=== PATIENT | female | born 1990 | race Caucasian/White ===

== ENCOUNTER 2018-09-27 15:24 | Outpatient (CLI) | payer OTHER ==
[~2018-09-27] VITALS: Ht 157.5 cm; Wt 83.1 kg
[~2018-09-27 15:24] MED LIST: NONE PER PT
[2018-09-27 15:37] VITALS: BP 127/78
[2018-09-27] MEDS ORDERED: PREN1TAB60 PO (17:04)
== END 2018-09-27 17:31 | disposition home or self-care (01) ==
LOC: LDOP 15:24
PROVIDERS: ATTEND Obstetrics & Gynecology
DX: O36.8130 Decreased fetal movements, third trimester, not applicable or unspecified (principal); Z3A.36 36 weeks gestation of pregnancy
CPT/HCPCS: 59025; 76819; 99201; G0463

== ENCOUNTER 2018-10-19 17:57 | Outpatient (CLI) | payer OTHER ==
[~2018-10-19] VITALS: Ht 157.5 cm; Wt 86.4 kg
[~2018-10-19 17:57] MED LIST changes: +PREN1TAB60 PO
[2018-10-19 18:26] VITALS: BP 127/83
== END 2018-10-19 21:00 | disposition home or self-care (01) ==
LOC: LDOP 17:57 → EDSTATUS 10-22 17:57
PROVIDERS: ATTEND Obstetrics & Gynecology
DX: O42.92 Full-term premature rupture of membranes, unspecified as to length of time between rupture and onset of labor (principal); Z88.8 Allergy status to other drugs, medicaments and biological substances; Z3A.39 39 weeks gestation of pregnancy
CPT/HCPCS: 59025; 89060; 99211; G0463; Q0114

== ENCOUNTER 2018-10-26 06:05 | Inpatient (IN) | payer OTHER ==
[~2018-10-26] VITALS: Ht 157.5 cm; Wt 86.3 kg
[2018-10-26] MEDS ORDERED: OXYTOCIN 30U/ 0.9% NaCL 500ML 500 ML IV ONE (06:07)
[2018-10-26] MEDS ORDERED: OXYTOCIN 30U/ 0.9% NaCL 500ML 500 ML IV PRN (06:07)
[2018-10-26] MEDS ORDERED: AMPICILLIN 2 GM in SODIUM CHLORIDE 0.9% 100 ML IVPB STA (06:07)
[2018-10-26 06:20] VITALS: BP 139/73
[2018-10-26] MEDS ORDERED: FENTANYL PF 100 MCG/2ML IV PRN (06:30)
[2018-10-26] MEDS ORDERED: TERBUTALINE 1 MG/ML, 1ML IVPush PRN ×2 (06:30)
[2018-10-26] MEDS ORDERED: ONDANSETRON 2MG/ML, 2ML IVPush PRN ×2 (06:30→11:00)
[2018-10-26] MEDS ORDERED: FENTANYL PF 100 MCG/2ML IVPush PRN (06:30)
[2018-10-26] MEDS: LACTATED RINGERS 1,000 ML IV SCH ×5 (06:33→22:07)
[2018-10-26] MEDS ORDERED: LIDOCAINE 1%, 20ML ONE (06:35)
[2018-10-26] MEDS ORDERED: OXYTOCIN 30U/ 0.9% NaCL 500ML 500 ML ONE ×2 (06:36→15:29)
[2018-10-26] MEDS ORDERED: MISOPROSTOL 200 MCG TABLET ONE (06:36)
[2018-10-26] MEDS ORDERED: NEWBORN KIT ONE (06:36)
[2018-10-26 07:15] LABS: BASOPHILS # (AUTO) 0.03 x10^3/uL (0-0.1); BASOPHILS % (AUTO) 0 % (0-1); EOSINOPHILS # (AUTO) 0.05 x10^3/uL (0-0.4); EOSINOPHILS % (AUTO) 1 % (1-7); LYMPHOCYTES # (AUTO) 1.24 x10^3/uL (1-3.4); LYMPHOCYTES % (AUTO) 18 % (22-44); MD NO; MEAN CORPUSCULAR HEMOGLOBIN 30.7 pg (27.0-34.8); MEAN CORPUSCULAR HGB CONC 33.3 g/dL (32.4-35.8); MEAN CORPUSCULAR VOLUME 92.2 fL (80-100); MEAN PLATELET VOLUME 7.5 fL (7.4-10.4); MONOCYTES # (AUTO) 0.34 x10^3/uL (0.2-0.8); MONOCYTES % (AUTO) 5 % (2-9); NEUTROPHILS # (AUTO) 5.38 x10^3/uL (1.8-6.8); NEUTROPHILS % (AUTO) 77 % (42-75); PLATELET COUNT 201 x10^3/uL (130-400); RED BLOOD COUNT 4.25 x10^6/uL (3.82-5.3); RED CELL DISTRIBUTION WIDTH 13.1 % (9.6-15.2)
[2018-10-26] MEDS ORDERED: FENTANYL/BUPIV./NS/PF 250 ML EPIDCONT SCH ×2 (07:28→10:50)
[2018-10-26] MEDS ORDERED: FENTANYL PF 100 MCG/2ML ONE (10:21)
[2018-10-26] MEDS ORDERED: BUPIVACAINE 0.25% ONE (10:22)
[2018-10-26] MEDS: AMPICILLIN 1 GM in SODIUM CHLORIDE 0.9% 100 ML IVPB SCH ×4 (10:30→18:30)
[2018-10-26] MEDS ORDERED: LACTATED RINGERS 1,000 ML IVBOLUS PRN (11:00)
[2018-10-26] MEDS ORDERED: EPHEDRINE 50 MG/ML, 1ML IVPush PRN (11:00)
[2018-10-26] MEDS ORDERED: MISOPROSTOL 200 MCG TABLET PR PRN (14:30)
[2018-10-26] MEDS: OXYTOCIN 30U/ 0.9% NaCL 500ML 500 ML IV SCH (15:32)
[2018-10-26 16:25] VITALS: BP 114/74
[2018-10-26] MEDS: IBUPROFEN 600 MG TABLET PO PRN (18:17)
[2018-10-26] MEDS: OXYcodone/APAP 5/325MG TABLET PO PRN (19:41)
[2018-10-26 19:50] VITALS: BP 110/71
[2018-10-26 22:45] LABS: BASOPHILS # (AUTO) 0.01 x10^3/uL (0-0.1); BASOPHILS % (AUTO) 0 % (0-1); EOSINOPHILS # (AUTO) 0.07 x10^3/uL (0-0.4); EOSINOPHILS % (AUTO) 1 % (1-7); LYMPHOCYTES # (AUTO) 1.44 x10^3/uL (1-3.4); LYMPHOCYTES % (AUTO) 14 % (22-44); MD NO; MEAN CORPUSCULAR HEMOGLOBIN 31.7 pg (27.0-34.8); MEAN CORPUSCULAR HGB CONC 33.7 g/dL (32.4-35.8); MEAN CORPUSCULAR VOLUME 94.2 fL (80-100); MEAN PLATELET VOLUME 7.4 fL (7.4-10.4); MONOCYTES # (AUTO) 0.42 x10^3/uL (0.2-0.8); MONOCYTES % (AUTO) 4 % (2-9); NEUTROPHILS # (AUTO) 8.56 x10^3/uL (1.8-6.8); NEUTROPHILS % (AUTO) 82 % (42-75); PLATELET COUNT 187 x10^3/uL (130-400); RED BLOOD COUNT 3.88 x10^6/uL (3.82-5.3); RED CELL DISTRIBUTION WIDTH 12.5 % (9.6-15.2)
[2018-10-27] VITALS: BP 118/78
[2018-10-27] MEDS: IBUPROFEN 600 MG TABLET PO PRN ×4 (00:04→21:02)
[2018-10-27] MEDS: OXYTOCIN 30U/ 0.9% NaCL 500ML 500 ML IV SCH ×3 (00:21→20:21)
[2018-10-27] MEDS: OXYcodone/APAP 5/325MG TABLET PO PRN ×4 (02:35→21:03)
[2018-10-27] MEDS: LACTATED RINGERS 1,000 ML IV SCH ×3 (02:50→18:50)
[2018-10-27 04:45] VITALS: BP 112/78
[2018-10-27 07:30] VITALS: BP 105/71
[2018-10-27] MEDS: PRENATAL VIT/IRON/FA 1 EACH TABLET PO SCH (07:36)
[2018-10-27 12:40] VITALS: BP 113/67
[2018-10-27 20:45] VITALS: BP 117/73
[2018-10-28] MEDS: OXYcodone/APAP 5/325MG TABLET PO PRN ×3 (02:13→11:37)
[2018-10-28] MEDS: LACTATED RINGERS 1,000 ML IV SCH (02:50)
[2018-10-28] MEDS: IBUPROFEN 600 MG TABLET PO PRN ×2 (06:12→11:37)
[2018-10-28] MEDS: OXYTOCIN 30U/ 0.9% NaCL 500ML 500 ML IV SCH (06:21)
[2018-10-28 07:50] VITALS: BP 116/73
[2018-10-28] MEDS ORDERED: IBUP-1222 PO (08:32)
[2018-10-28] MEDS: PRENATAL VIT/IRON/FA 1 EACH TABLET PO SCH (11:37)
== END 2018-10-28 12:38 | disposition home or self-care (01) | DRG 807 ==
LOC: LDIP 06:05 → 2NW 16:18
PROVIDERS: ADMIT Obstetrics & Gynecology; ATTEND Obstetrics & Gynecology
PROC: 10E0XZZ Delivery of Products of Conception, External Approach (ICD-10-PCS; principal; 2018-10-26)
PROC: 0KQM0ZZ Repair Perineum Muscle, Open Approach (ICD-10-PCS; 2018-10-26)
PROC: 10907ZC Drainage of Amniotic Fluid, Therapeutic from Products of Conception, Via Natural or Artificial Opening (ICD-10-PCS; 2018-10-26)
PROC: 3E0R3BZ Introduction of Anesthetic Agent into Spinal Canal, Percutaneous Approach (ICD-10-PCS; 2018-10-26)
PROC: 00HU33Z Insertion of Infusion Device into Spinal Canal, Percutaneous Approach (ICD-10-PCS; 2018-10-26)
DX: O69.81X0 Labor and delivery complicated by cord around neck, without compression, not applicable or unspecified (principal); Z37.0 Single live birth; Z3A.39 39 weeks gestation of pregnancy; O70.1 Second degree perineal laceration during delivery
CPT/HCPCS: 36415; 85025; 86850; 86900; G0378; J0290; J2590; J3010; J7120